=== PATIENT | female | born 1985 | race Caucasian/White ===

== ENCOUNTER 2018-07-03 19:39 | Emergency (ER) | payer OTHER ==
[~2018-07-03] VITALS: Ht 165.1 cm; Wt 72.6 kg
[~2018-07-03 19:39] MED LIST: AC500T PO; FERR-57 PO; FRS325T PO; NIFE20CA PO; PREN1TAB39 PO
--- NOTE | 2018-07-03 19:58 | ED General ---
General Chief Complaint: Upper Extremity Stated Complaint: LEFT WRIST INJURY History of Present Illness Date Seen by Provider: July 03, 2018 Time Seen by Provider: 19:43 32F here for L wrist pain 24 hours after injury playing softball. Caught line drive into a baseball glove, was feeling ok at the time but since then has developed more pain in the distal left forearm. No W/N/T. No other injuries. Sore, constant, mild, worse w movement, nonradiating. Allergies and Home Medications Allergies Coded Allergies: Amoxicillin (Verified Allergy, Unknown, 03/29/06) Home Medications Acetaminophen 500 Mg Tablet, 1,000 MG PO, (Reported) Ferrous Sulfate 325 Mg Tablet, 325 MG PO DAILY, (Reported) Nifedipine 20 Mg Capsule, 40 MG PO BID, (Reported) Vits W-Ca,Fe,Fa(<1MG) 1 Each Tablet, 1 EACH PO DAILY, (Reported) Patient Home Medication List Home Medication List Reviewed: Yes Review of Systems Review of Systems Constitutional: no symptoms reported EENTM: no symptoms reported Respiratory: no symptoms reported Cardiovascular: no symptoms reported Gastrointestinal: no symptoms reported Genitourinary: no symptoms reported Musculoskeletal: see HPI Skin: no symptoms reported Psychiatric/Neurological: No Symptoms Reported Hematologic/Lymphatic: No Symptoms Reported Past Elchqnf-Terhrm-Cewpnd Hx Past Med/Social Hx: Reviewed Nursing Past Med/Soc Hx Patient Social History Recent Foreign Travel: No Contact w/Someone Who Travel: No Immunizations Up To Date Date of Influenza Vaccine: Mar 25, 2011 Past Medical History Reproductive Disorders: No Physical Exam Vital Signs Vital Signs - First Documented 07/03/18 19:47 Temp 98.3 Pulse 80 Resp 16 B/P (MAP) 111/77 (88) Pulse Ox 100 O2 Delivery Room Air Capillary Refill : Height, Weight, BMI Height: '" Weight: lbs. oz. kg; BMI Method: General Appearance: No Apparent Distress HEENT: Moist Mucous Membranes Neck: Supple Respiratory: Lungs Clear Cardiovascular: Regular Rate, Rhythm, Normal Peripheral Pulses Gastrointestinal: Non Tender, Soft Extremity: Other (normal inspection of forearm and hand on L, mild tenderness over distal dorsal radius, no tenderness in the hand) Neurologic/Psychiatric: No Motor/Sensory Deficits (radial, median, ulnar nerve function intact in affected hand) Skin: Warm/Dry Progress/Results/Core Measures Suspected Sepsis SIRS Temperature: Pulse: Respiratory Rate: Blood Pressure / Mean: Results/Orders My Orders Orders - IMANI SHEEHAN DO Wrist 2 View Left (07/03/18 19:52) Vital Signs/I&O 07/03/18 19:47 Temp 98.3 Pulse 80 Resp 16 B/P (MAP) 111/77 (88) Pulse Ox 100 O2 Delivery Room Air Capillary Refill : Progress Note : Progress Note 32F L wrist injury 24 hours ago, NVI, mild ttp over distal radius. Obtained xr. No obvious fx on my read, pt will f/u for formal read. Volar splint during the day with ROM as tolerated, f/u pcp. HAMMAD, NSAID's. Return if worse. Departure Impression Primary Impression: Contusion of wrist Qualified Codes: S60.212A - Contusion of left wrist, initial encounter Disposition: 01 HOME, SELF-CARE Condition: Stable Departure-Patient Inst. Referrals: NO,LOCAL PHYSICIAN (PCP/Family) Primary Care Physician Patient Instructions: Common Wrist Injuries (DC) IMANI SHEEHAN DO July 03, 2018 19:58
[2018-07-03 20:03] VITALS: BP 111/77
--- NOTE | 2018-07-03 20:15 | Diagnostic Imaging Report ---
INDICATION: Left wrist pain COMPARISON: None FINDINGS: Two views of the left wrist demonstrate no fracture or dislocation. Articular surfaces are normal. No foreign body seen. IMPRESSION: Negative left wrist Dictated by: Dictated on workstation # [id number]
== END 2018-07-03 20:12 | disposition home or self-care (01) ==
LOC: EDUNIT# 19:39 → ER FS 19:42
DX: S60.212A Contusion of left wrist, initial encounter (principal); Z88.0 Allergy status to penicillin; X58.XXXA Exposure to other specified factors, initial encounter; Y93.64 Activity, baseball
CPT/HCPCS: 73100

== ENCOUNTER 2018-11-21 17:22 | Emergency (ER) | payer SELFPAY ==
[~2018-11-21] VITALS: Ht 162.6 cm; Wt 74.0 kg
--- NOTE | 2018-11-21 18:35 | ED Headache ---
General Chief Complaint: Head/Cervical Problems Stated Complaint: HEADACHE Nursing Triage Note: Patient reports a migraine headache for 1 week, states she has seen her PCP twice in the last week and has had IM injections both visits without relief. She states she has a 5-6 year history of migraines, saw a neurologist 5-6 years ago, but not since. She states this migraine is the worst she has ever had, states her vision is blurry and her aura of seeing flashing lights has not gone away. Nursing Sepsis Screen: No Definite Risk Source: patient History of Present Illness Date Seen by Provider: Nov 21, 2018 Time Seen by Provider: 18:11 Initial Comments 33-year-old female presenting with complaints of migraine headache. She states that this migraine has been present for almost a week now. She has seen the clinic twice with IM shots which usually have helped in the past but had not made the headache go away this week. She denies any fever or chills. She has nausea but no vomiting. She was told when she got the last set of shots through the clinic that if she was having any new symptoms or not getting better to come to the emergency department. Today she felt like her right side of her face was twitching as well as having blurred vision and difficulty remembering things. She has pain on the right side of her neck going up the back of her head to the front. She states that part is a little worse than normal. She denies any falls or recent injuries. Allergies and Home Medications Allergies Coded Allergies: Amoxicillin (Verified Allergy, Unknown, 03/29/06) Home Medications Acetaminophen 500 Mg Tablet, 1,000 MG PO, (Reported) Cyclobenzaprine HCl 10 Mg Tablet, 10 MG PO Q8H PRN for SPASMS Prescribed by: BYRON VILLALOBOS on 11/21/182105 Ferrous Sulfate 325 Mg Tablet, 325 MG PO DAILY, (Reported) Nifedipine 20 Mg Capsule, 40 MG PO BID, (Reported) Vits W-Ca,Fe,Fa(<1MG) 1 Each Tablet, 1 EACH PO DAILY, (Reported) Patient Home Medication List Home Medication List Reviewed: Yes Review of Systems Review of Systems Constitutional: No chills, No dizziness, No fever Eyes: Blurred Vision, Photophobia Ears, Nose, Mouth, Throat: denies ear pain, denies ear discharge, denies nose discharge, denies epistaxis Respiratory: No cough, No short of breath Cardiovascular: No chest pain Gastrointestinal: nausea; No vomiting Genitourinary: no symptoms reported Musculoskeletal: neck pain (right sided) Skin: No rash Psychiatric/Neurological: Headache Past Yfxwifk-Hxidbu-Gytjot Hx Past Med/Social Hx: Reviewed Nursing Past Med/Soc Hx Patient Social History Alcohol Use: Denies Use Recreational Drug Use: No Smoking Status: Current Everyday Smoker Type Used: Cigarettes 2nd Hand Smoke Exposure: No Recent Foreign Travel: No Contact w/Someone Who Travel: No Recent Infectious Disease Expo: No Recent Hopitalizations: No Physical Abuse: No Sexual Abuse: No Mistreated: No Fear: No Immunizations Up To Date Date of Influenza Vaccine: Mar 25, 2011 Seasonal Allergies Seasonal Allergies: No Past Medical History Surgeries: Yes (D&C, Appy, Hernia repair) Appendectomy, Tubal Ligation Respiratory: No Cardiac: No Neurological: Yes Headaches /Migraines Reproductive Disorders: No Genitourinary: No Gastrointestinal: No Musculoskeletal: No Endocrine: No HEENT: No Cancer: No Psychosocial: No Integumentary: No Blood Disorders: Yes Physical Exam Vital Signs Vital Signs - First Documented 11/21/18 17:33 Temp 36.1 Pulse 105 Resp 18 B/P (MAP) 120/73 (89) Pulse Ox 99 O2 Delivery Room Air Capillary Refill : Less Than 3 Seconds Height, Weight, BMI Height: 5'5.00" Weight: 160lbs. oz. 72.351294ll; 27.00 BMI Method:Stated General Appearance: WD/WN, mild distress HEENT: PERRL/EOMI, normal ENT inspection, TMs normal, pharynx normal Neck: full range of motion, supple, tender lateral (especially right side.); No tender midline Cardiovascular: normal peripheral pulses, regular rate, rhythm Respiratory: chest non-tender, lungs clear, normal breath sounds Gastrointestinal: normal bowel sounds, non tender, soft Extremities: normal range of motion, non-tender Psychiatric: alert, oriented x 3 Crainal Nerves: normal hearing, normal speech, PERRL Coordination/Gait: normal gait Motor/Sensory: no motor deficit, no sensory deficit Skin: normal color, warm/dry Progress/Results/Core Measures Results/Orders Lab Results Laboratory Tests Test 11/21/18 19:05 Range/Units White Blood Count 7.8 4.3-11.0 10^3/uL Red Blood Count 4.62 4.35-5.85 10^6/uL Hemoglobin 14.3 11.5-16.0 G/DL Hematocrit 43 35-52 % Mean Corpuscular Volume 93 80-99 FL Mean Corpuscular Hemoglobin 31 25-34 PG Mean Corpuscular Hemoglobin Concent 33 32-36 G/DL Red Cell Distribution Width 12.7 10.0-14.5 % Platelet Count 197 130-400 10^3/uL Mean Platelet Volume 10.8 H 7.4-10.4 FL Neutrophils (%) (Auto) 55 42-75 % Lymphocytes (%) (Auto) 32 12-44 % Monocytes (%) (Auto) 9 0-12 % Eosinophils (%) (Auto) 2 0-10 % Basophils (%) (Auto) 1 0-10 % Neutrophils # (Auto) 4.4 1.8-7.8 X 10^3 Lymphocytes # (Auto) 2.5 1.0-4.0 X 10^3 Monocytes # (Auto) 0.7 0.0-1.0 X 10^3 Eosinophils # (Auto) 0.2 0.0-0.3 10^3/uL Basophils # (Auto) 0.1 0.0-0.1 10^3/uL Sodium Level 139 135-145 MMOL/L Potassium Level 4.0 3.6-5.0 MMOL/L Chloride Level 105 98-107 MMOL/L Carbon Dioxide Level 23 21-32 MMOL/L Anion Gap 11 5-14 MMOL/L Blood Urea Nitrogen 7 7-18 MG/DL Creatinine 0.53 L 0.60-1.30 MG/DL Estimat Glomerular Filtration Rate > 60 BUN/Creatinine Ratio 13 Glucose Level 100 70-105 MG/DL Calcium Level 9.7 8.5-10.1 MG/DL Corrected Calcium 9.4 8.5-10.1 MG/DL Total Bilirubin 0.3 0.1-1.0 MG/DL Aspartate Amino Transf (AST/SGOT) 16 5-34 U/L Alanine Aminotransferase (ALT/SGPT) 12 0-55 U/L Alkaline Phosphatase 62 40-136 U/L Total Protein 7.1 6.4-8.2 GM/DL Albumin 4.4 3.2-4.5 GM/DL My Orders Orders - BYRON VILLALOBOS MD Iv/Invasive Line Insertion .IV start (11/21/18 18:42) Cbc With Automated Diff (11/21/18 18:42) Comprehensive Metabolic Panel (11/21/18 18:42) Ct Head Wo (11/21/18 18:42) Ns Iv 1000 Ml (Sodium Chloride 0.9%) (11/21/18 18:42) Ketorolac Injection (Toradol Injection) (11/21/18 18:42) Metoclopramide Injection (Reglan Injecti (11/21/18 18:42) Diphenhydramine Injection (Benadryl Inje (11/21/18 18:42) Orphenadrine Injection (Norflex Injectio (11/21/18 18:42) Dexamethasone Injection (Decadron Inject (11/21/18 20:14) Morphine Injection (Morphine Injection (11/21/18 20:14) Rx-Cyclobenzaprine Tablet (Rx-Flexeril T (11/21/18 21:03) Vital Signs/I&O 11/21/18 17:33 Temp 36.1 Pulse 105 Resp 18 B/P (MAP) 120/73 (89) Pulse Ox 99 O2 Delivery Room Air Blood Pressure Mean: 89 Progress Progress Note #1: Progress Note Check labs and CT head since she reports this headache feels worse or different than usual Migraine. Add in Norflex for neck pain and muscle spasm, IVF for hydration, Toradol for pain, Reglan for headache and nausea, Benadryl for nausea and to help her relax. Progress Note #2: Time: 20:06 Progress Note I reviewed her electronic medical records from [facility] and the CAT scans and MRIs that she had done within 2014 for the migraine workup. She has no acute abnormality on her CBC or chemistry. Her CT of the head tonight does not show any acute abnormalities either. On recheck of the patient's she states that her symptoms are improved but she was still having a headache. Her nausea is resolved. Unfortunately they do not stock IV Depakote here in the emergency department [facility] so I cannot give her an IV dose of this but will try IV dexamethasone and morphine. If this is helping her then plan on discharge to home and did addiction treatment counselor her about possibility of a rebound headache with the narcotics. Progress Note #3: Time: 20:58 Progress Note Pain down to 6/10 and feels like she could finally rest at home. Will send with a few cyclobenzaprine pills for home. Counseled on follow up and return precautions Diagnostic Imaging Diagonstic Imaging: CT Plain Films/CT/US/NM/MRI: head Comments NAME: [facility] REC#: [id number] PT STATUS: REG ER : 1985 PHYSICIAN: BYRON VILLALOBOS MD ADMIT DATE: 11/21/18/ER FS Draft Date of Exam:11/21/18 CT HEAD WO INDICATION: Persistent headache x 1 week. EXAMINATION: Noncontrast brain CT was performed. FINDINGS: There are no extra-axial fluid collections. No intracranial hemorrhage. No intracranial mass or mass effect. No midline shift. The ventricles are normal in size and position. There are no focal parenchymal abnormalities in the brain. Calvarial windows are unremarkable. Visualized portions of the mastoid air cells and paranasal sinuses are clear. IMPRESSION: Negative noncontrast brain CT. Dictated on workstation # [id number] Dict: 11/21/181915 Trans: 11/21/181918 [id number] Interpreted by: LISA DANIEL MD Electronically signed by: Reviewed: Reviewed by Me Departure Impression Primary Impression: Headache, migraine, intractable Qualified Codes: G43.119 - Migraine with aura, intractable, without status migrainosus Disposition: HOME, SELF-CARE Condition: Stable Departure-Patient Inst. Decision time for Depature: 21:05 Referrals: JASPREET ETIENNE MD (PCP/Family) Primary Care Physician Patient Instructions: Migraine Headache (DC) Add. Discharge Instructions: Follow-up with Dr. Etienne in the clinic for continued concerns. You may need to see a neurologist again if you are continuing to have worsening migraines. Stay well hydrated and get plenty of rest. Rest in a cool dark room Continue on your regular medicines. Take Muscle relaxer to help with your neck and headache symptoms as well. All discharge instructions reviewed with patient and/or family. Voiced understanding. Scripts Cyclobenzaprine HCl (Cyclobenzaprine HCl) 10 Mg Tablet 10 MG PO Q8H PRN for SPASMS for 5 Days, #15 TAB 0 Refills Prov: BYRON VILLALOBOS MD 11/21/18 Work/School Note: Work Release Form Date Seen in the Emergency Department: Nov 21, 2018 Return to Work: Nov 23, 2018 Restrictions: No Restrictions BYRON VILLALOBOS MD Nov 21, 2018 18:35
[2018-11-21] MEDS ORDERED: diphenhydrAMINE 50 MG/ML INJ (BENADRYL) IVP STA (18:42)
[2018-11-21] MEDS ORDERED: NS IV 1000 ML 1,000 ML IV STA (18:42)
[2018-11-21] MEDS ORDERED: METOCLOPRAMIDE INJ 10 MG/2 ML (REGLAN) IVP STA (18:42)
[2018-11-21] MEDS ORDERED: KETOROLAC 30 MG/ML VIAL IVP STA (18:42)
[2018-11-21] MEDS ORDERED: ORPHENADRINE 60 MG/2 ML (NORFLEX) AMP IVP STA (18:42)
[2018-11-21 19:15] LABS: HEMATOCRIT 43 % (35-52); HEMOGLOBIN 14.3 G/DL (11.5-16.0); MEAN CORPUSCULAR HEMOGLOBIN 31 PG (25-34); MEAN CORPUSCULAR HGB CONC 33 G/DL (32-36); MEAN CORPUSCULAR VOLUME 93 FL (80-99); RED CELL DISTRIBUTION WIDTH 12.7 % (10.0-14.5); WHITE BLOOD COUNT 7.8 10^3/uL (4.3-11.0)
[2018-11-21 19:16] LABS: BASOPHILS % (AUTO) 1 % (0-10); EOSINOPHILS % (AUTO) 2 % (0-10); LYMPHOCYTES % (AUTO) 32 % (12-44); MEAN PLATELET VOLUME 10.8 FL (7.4-10.4); MONOCYTES % (AUTO) 9 % (0-12); NEUTROPHILS # (AUTO) 4.4 X 10^3 (1.8-7.8); NEUTROPHILS % (AUTO) 55 % (42-75); PLATELET COUNT 197 10^3/uL (130-400)
[2018-11-21 19:17] LABS: BASOPHILS # (AUTO) 0.1 10^3/uL (0.0-0.1); EOSINOPHILS # (AUTO) 0.2 10^3/uL (0.0-0.3); LYMPHOCYTES # (AUTO) 2.5 X 10^3 (1.0-4.0); MONOCYTES # (AUTO) 0.7 X 10^3 (0.0-1.0)
--- NOTE | 2018-11-21 19:17 | NUR ---
PT RESTING IN BED WITH THE LIGHTS OFF. PT REPORTS HER PAIN IS STILL A 10/10. PROVIDER NOTIFIED.
--- NOTE | 2018-11-21 19:20 | Diagnostic Imaging Report ---
INDICATION: Persistent headache x 1 week. EXAMINATION: Noncontrast brain CT was performed. FINDINGS: There are no extra-axial fluid collections. No intracranial hemorrhage. No intracranial mass or mass effect. No midline shift. The ventricles are normal in size and position. There are no focal parenchymal abnormalities in the brain. Calvarial windows are unremarkable. Visualized portions of the mastoid air cells and paranasal sinuses are clear. IMPRESSION: Negative noncontrast brain CT. Dictated by: Dictated on workstation # [id number]
[2018-11-21 19:42] LABS: BUN/CREATININE RATIO 13; CARBON DIOXIDE 23 MMOL/L (21-32); CHLORIDE 105 MMOL/L (98-107); CREATININE SERUM 0.53 MG/DL (0.60-1.30); GFR ESTIMATED > 60; SODIUM 139 MMOL/L (135-145)
[2018-11-21 19:43] LABS: ALANINE AMINOTRANSFERASE 12 U/L (0-55); ALBUMIN 4.4 GM/DL (3.2-4.5); ALKALINE PHOSPHATASE 62 U/L (40-136); BILIRUBIN,TOTAL 0.3 MG/DL (0.1-1.0); CALCIUM 9.7 MG/DL (8.5-10.1); GLUCOSE 100 MG/DL (70-105); TOTAL PROTEIN 7.1 GM/DL (6.4-8.2)
[2018-11-21] MEDS ORDERED: morphine INJ 10 MG/ML 1ML (SYR OR VIAL) IVP STA (20:14)
[2018-11-21] MEDS ORDERED: DEXAMETHASONE 10 MG/ML (DECADRON) 1 ML VIAL IV STA (20:14)
[2018-11-21] MEDS ORDERED: RX-CYCLOBENZAPRINE 10 MG (FLEXERIL) TAB PPK#3 PO STA (21:03)
[2018-11-21] MEDS ORDERED: CYCL10TA9 PO (21:06)
[2018-11-21 21:14] VITALS: BP 131/78
== END 2018-11-21 21:13 | disposition home or self-care (01) ==
LOC: EDUNIT# 17:22 → ER FS 17:24
DX: G43.919 Migraine, unspecified, intractable, without status migrainosus (principal); F17.210 Nicotine dependence, cigarettes, uncomplicated; Z90.49 Acquired absence of other specified parts of digestive tract; Z98.51 Tubal ligation status; Z88.0 Allergy status to penicillin
CPT/HCPCS: 36415; 70450; 80053; 85025

== ENCOUNTER 2018-12-06 09:26 | Emergency (ER) | payer SELFPAY ==
[~2018-12-06] VITALS: Ht 162.5 cm; Wt 77.6 kg
[~2018-12-06 09:26] MED LIST changes: +CYCL10TA9 PO
--- NOTE | 2018-12-06 09:43 | ED Abdominal Pain ---
General Chief Complaint: Abdominal/GI Problems Stated Complaint: LRQ PAIN; HOT FLASHES; NAUSEA Source of Information: Patient Exam Limitations: No Limitations History of Present Illness Date Seen by Provider: Dec 06, 2018 Time Seen by Provider: 09:42 Initial Comments Patient complains of right lower quadrant and suprapubic pain since chest today. Pain is sharp and stabbing. It does not radiate. No vomiting or diarrhea. No fevers or chills. Similar pain in the past with an ovarian cyst. Allergies and Home Medications Allergies Coded Allergies: Amoxicillin (Verified Allergy, Unknown, 03/29/06) Home Medications Acetaminophen 500 Mg Tablet, 1,000 MG PO, (Reported) Cyclobenzaprine HCl 10 Mg Tablet, 10 MG PO Q8H PRN for SPASMS Prescribed by: BYRON VILLALOBOS on 11/21/182105 Ferrous Sulfate 325 Mg Tablet, 325 MG PO DAILY, (Reported) Nifedipine 20 Mg Capsule, 40 MG PO BID, (Reported) Vits W-Ca,Fe,Fa(<1MG) 1 Each Tablet, 1 EACH PO DAILY, (Reported) Patient Home Medication List Home Medication List Reviewed: Yes Review of Systems Review of Systems Constitutional: no symptoms reported EENTM: No Symptoms Reported Respiratory: No Symptoms Reported Cardiovascular: No Symptoms Reported Gastrointestinal: Abdominal Pain; Denies Diarrhea, Denies Nausea Musculoskeletal: no symptoms reported Skin: no symptoms reported All Other Systems Reviewed Negative Unless Noted: Yes Past Wwhmdsx-Ucqhfu-Jyygbq Hx Patient Social History Type Used: Cigarettes 2nd Hand Smoke Exposure: No Recent Foreign Travel: No Recent Hopitalizations: No Immunizations Up To Date Date of Influenza Vaccine: Mar 25, 2011 Seasonal Allergies Seasonal Allergies: No Past Medical History Surgeries: Yes (D&C, Appy, Hernia repair) Appendectomy, Tubal Ligation Respiratory: No Cardiac: No Neurological: Yes Headaches /Migraines Reproductive Disorders: No Genitourinary: No Gastrointestinal: No Musculoskeletal: No Endocrine: No HEENT: No Cancer: No Psychosocial: No Integumentary: No Blood Disorders: Yes Physical Exam Vital Signs Vital Signs - First Documented 12/06/18 09:32 Temp 36.8 Pulse 113 Resp 18 B/P (MAP) 123/79 (94) Pulse Ox 97 O2 Delivery Room Air Capillary Refill : Height/Weight/BMI Height: 5'5.00" Weight: 160lbs. oz. 72.423626yc; 27.00 BMI Method:Stated General Appearance: WD/WN, mild distress HEENT: PERRL/EOMI, pharynx normal Neck: supple Respiratory: lungs clear, normal breath sounds Cardiovascular: regular rate, rhythm, no edema Gastrointestinal: soft; No distended; guarding; No rebound; tenderness (suprapubic and right lower quadrant tenderness) Extremities: normal inspection Neurologic/Psychiatric: alert, normal mood/affect Skin: normal color, warm/dry Progress/Results/Core Measures Results/Orders Lab Results Laboratory Tests Test 12/06/18 09:48 12/06/18 09:55 Range/Units White Blood Count 9.8 4.3-11.0 10^3/uL Red Blood Count 4.10 L 4.35-5.85 10^6/uL Hemoglobin 12.8 11.5-16.0 G/DL Hematocrit 38 35-52 % Mean Corpuscular Volume 93 80-99 FL Mean Corpuscular Hemoglobin 31 25-34 PG Mean Corpuscular Hemoglobin Concent 34 32-36 G/DL Red Cell Distribution Width 12.7 10.0-14.5 % Platelet Count 208 130-400 10^3/uL Mean Platelet Volume 10.3 7.4-10.4 FL Neutrophils (%) (Auto) 65 42-75 % Lymphocytes (%) (Auto) 25 12-44 % Monocytes (%) (Auto) 8 0-12 % Eosinophils (%) (Auto) 1 0-10 % Basophils (%) (Auto) 1 0-10 % Neutrophils # (Auto) 6.4 1.8-7.8 X 10^3 Lymphocytes # (Auto) 2.4 1.0-4.0 X 10^3 Monocytes # (Auto) 0.8 0.0-1.0 X 10^3 Eosinophils # (Auto) 0.1 0.0-0.3 10^3/uL Basophils # (Auto) 0.1 0.0-0.1 10^3/uL Sodium Level 140 135-145 MMOL/L Potassium Level 3.9 3.6-5.0 MMOL/L Chloride Level 103 98-107 MMOL/L Carbon Dioxide Level 23 21-32 MMOL/L Anion Gap 14 5-14 MMOL/L Blood Urea Nitrogen 10 7-18 MG/DL Creatinine 0.59 L 0.60-1.30 MG/DL Estimat Glomerular Filtration Rate > 60 BUN/Creatinine Ratio 17 Glucose Level 108 H 70-105 MG/DL Calcium Level 8.9 8.5-10.1 MG/DL Corrected Calcium 8.7 8.5-10.1 MG/DL Total Bilirubin 0.2 0.1-1.0 MG/DL Aspartate Amino Transf (AST/SGOT) 23 5-34 U/L Alanine Aminotransferase (ALT/SGPT) 41 0-55 U/L Alkaline Phosphatase 81 40-136 U/L Total Protein 7.0 6.4-8.2 GM/DL Albumin 4.3 3.2-4.5 GM/DL Lipase 15 8-78 U/L Urine Color YELLOW Urine Clarity CLEAR Urine pH 6.5 5-9 Urine Specific [place] 1.015 L 1.016-1.022 Urine Protein NEGATIVE NEGATIVE Urine Glucose (UA) NEGATIVE NEGATIVE Urine Ketones NEGATIVE NEGATIVE Urine Nitrite NEGATIVE NEGATIVE Urine Bilirubin NEGATIVE NEGATIVE Urine Urobilinogen 0.2 NORMAL MG/DL Urine Leukocyte Esterase NEGATIVE NEGATIVE Urine RBC (Auto) NEGATIVE NEGATIVE Urine RBC NONE /HPF Urine WBC 2-5 /HPF Urine Squamous Epithelial Cells 10-25 H /HPF Urine Crystals NONE /LPF Urine Bacteria NEGATIVE /HPF Urine Casts NONE /LPF Urine Mucus NONE /LPF Urine Culture Indicated NO Urine Test NEGATIVE NEGATIVE My Orders Orders - JOSELITO RIVERA MD Cbc With Automated Diff (12/06/18 09:40) Comprehensive Metabolic Panel (12/06/18 09:40) Hcg,Qualitative Urine (12/06/18 09:40) Lipase (12/06/18 09:40) Ua Culture If Indicated (12/06/18 09:40) Ketorolac Injection (Toradol Injection) (12/06/18 09:45) Ct Abdomen/Pelvis Wo (12/06/18 09:52) Medications Given in ED Current Medications Medications Dose Ordered Sig/Sachin Route Start Time Stop Time Status Last Admin Dose Admin Ketorolac Tromethamine 30 mg ONCE ONCE IV 12/06/18 09:45 12/06/18 09:46 DC 12/06/18 10:03 30 MG Vital Signs/I&O 12/06/18 09:32 Temp 36.8 Pulse 113 Resp 18 B/P (MAP) 123/79 (94) Pulse Ox 97 O2 Delivery Room Air Progress Progress Note : Time: 11:02 Progress Note Patient feels better after medications. Stable for discharge. Test results discussed patient. Departure Impression Primary Impression: Abdominal pain Disposition: HOME, SELF-CARE Condition: Stable Departure-Patient Inst. Decision time for Depature: 11:02 Referrals: JASPREET ETEINNE MD (PCP/Family) Primary Care Physician Patient Instructions: Acute Abdomen (Belly Pain), Adult (DC) Add. Discharge Instructions: Clear liquid diet for next 24 hours. See your doctor tomorrow if not improving. All discharge instructions reviewed with patient and/or family. Voiced understanding. Scripts Diclofenac Sodium (Diclofenac Sodium) 50 Mg Tablet. 50 MG PO BID PRN, #10 TAB Prov: JOSELITO RIVERA MD 12/06/18 JOSELITO RIVERA MD Dec 06, 2018 09:43
[2018-12-06] MEDS ORDERED: KETOROLAC 30 MG/ML VIAL IV ONE (09:45)
[2018-12-06 09:57] LABS: BASOPHILS % (AUTO) 1 % (0-10); EOSINOPHILS % (AUTO) 1 % (0-10); HEMATOCRIT 38 % (35-52); HEMOGLOBIN 12.8 G/DL (11.5-16.0); LYMPHOCYTES # (AUTO) 2.4 X 10^3 (1.0-4.0); LYMPHOCYTES % (AUTO) 25 % (12-44); MEAN CORPUSCULAR HEMOGLOBIN 31 PG (25-34); MEAN CORPUSCULAR HGB CONC 34 G/DL (32-36); MEAN CORPUSCULAR VOLUME 93 FL (80-99); MEAN PLATELET VOLUME 10.3 FL (7.4-10.4); MONOCYTES # (AUTO) 0.8 X 10^3 (0.0-1.0); MONOCYTES % (AUTO) 8 % (0-12); NEUTROPHILS # (AUTO) 6.4 X 10^3 (1.8-7.8); NEUTROPHILS % (AUTO) 65 % (42-75); PLATELET COUNT 208 10^3/uL (130-400); RED CELL DISTRIBUTION WIDTH 12.7 % (10.0-14.5); WHITE BLOOD COUNT 9.8 10^3/uL (4.3-11.0)
[2018-12-06 09:58] LABS: BASOPHILS # (AUTO) 0.1 10^3/uL (0.0-0.1); EOSINOPHILS # (AUTO) 0.1 10^3/uL (0.0-0.3)
[2018-12-06 10:11] LABS: BILIRUBIN,URINE NEGATIVE (NEGATIVE); CLARITY,URINE CLEAR; COLOR,URINE YELLOW; GLUCOSE, URINE (UA) NEGATIVE (NEGATIVE); KETONES,URINE NEGATIVE (NEGATIVE); LEUKOCYTE ESTERASE ,URINE NEGATIVE (NEGATIVE); NITRITE,URINE NEGATIVE (NEGATIVE); PH,URINE 6.5 (5-9); PROTEIN,URINE NEGATIVE (NEGATIVE)
[2018-12-06 10:12] LABS: BACTERIA,URINE NEGATIVE /HPF
[2018-12-06 10:17] LABS: CHLORIDE 103 MMOL/L (98-107); POTASSIUM 3.9 MMOL/L (3.6-5.0); SODIUM 140 MMOL/L (135-145)
[2018-12-06 10:18] LABS: ALANINE AMINOTRANSFERASE 41 U/L (0-55); ALBUMIN 4.3 GM/DL (3.2-4.5); ALKALINE PHOSPHATASE 81 U/L (40-136); BILIRUBIN,TOTAL 0.2 MG/DL (0.1-1.0); BUN/CREATININE RATIO 17; CALCIUM 8.9 MG/DL (8.5-10.1); CARBON DIOXIDE 23 MMOL/L (21-32); CREATININE SERUM 0.59 MG/DL (0.60-1.30); GFR ESTIMATED > 60; GLUCOSE 108 MG/DL (70-105); LIPASE 15 U/L (8-78)
--- NOTE | 2018-12-06 10:41 | Diagnostic Imaging Report ---
CT ABDOMEN/PELVIS WO TECHNIQUE: Unenhanced CT imaging of the abdomen and pelvis was performed. 2-D reformats are created and submitted for interpretation. Automatic exposure controls were utilized to optimize patient dose. INDICATION: Right-sided abdominal pain. COMPARISON: None available. FINDINGS: Evaluation of the abdominal viscera is mildly limited without contrast. Lower chest: The lung bases are clear. No pericardial or pleural effusion. Peritoneum: No free intraperitoneal air or fluid. Liver and biliary system: Unenhanced liver is normal. The gallbladder is normal. No biliary duct dilation. Spleen and Pancreas: Spleen is normal. Unenhanced pancreas is grossly normal. Adrenals: Normal. tract: No renal or ureteral calculi. No obstructive uropathy. Uterus and ovaries are normal in appearance. GI tract: Stomach is decompressed, limiting assessment. No bowel obstruction. No pericolonic inflammatory changes. Appendectomy. Vasculature and Lymph nodes: Normal caliber aorta. No abdominal or pelvic lymphadenopathy. Musculoskeletal: No concerning osseous lesion. Nonaggressive lucent lesion with sclerotic margins in the L2 vertebral body along its posterior right lateral aspect. IMPRESSION: 1. No urinary tract calculi or obstructive uropathy. 2. No colitis, diverticulitis or bowel obstruction. 3. Appendectomy. Dictated by: Dictated on workstation # [id number]
[2018-12-06] MEDS ORDERED: DICL50TA6 PO (11:04)
[2018-12-06 11:18] VITALS: BP 123/79
== END 2018-12-06 11:18 | disposition home or self-care (01) ==
LOC: EDUNIT# 09:26 → ER FS 09:27
DX: R10.31 Right lower quadrant pain (principal); G43.909 Migraine, unspecified, not intractable, without status migrainosus; Z88.0 Allergy status to penicillin; Z90.49 Acquired absence of other specified parts of digestive tract; Z98.51 Tubal ligation status
CPT/HCPCS: 36415; 74176; 80053; 81000; 83690; 84703; 85025

== ENCOUNTER 2018-12-08 12:57 | Emergency (ER) | payer SELFPAY ==
[~2018-12-08] VITALS: Ht 164.5 cm; Wt 76.4 kg
[~2018-12-08 12:57] MED LIST changes: +DICL50TA6 PO
[2018-12-08] MEDS ORDERED: morphine INJ 10 MG/ML 1ML (SYR OR VIAL) IVP STA (13:09)
[2018-12-08] MEDS ORDERED: KETOROLAC 30 MG/ML VIAL IVP ONE (13:15)
[2018-12-08] MEDS ORDERED: NS IV 1000 ML 1,000 ML IV SCH (13:15)
[2018-12-08 13:24] LABS: BILIRUBIN,URINE NEGATIVE (NEGATIVE); CLARITY,URINE CLEAR; COLOR,URINE PALE YELLOW; GLUCOSE, URINE (UA) NEGATIVE (NEGATIVE); KETONES,URINE NEGATIVE (NEGATIVE); LEUKOCYTE ESTERASE ,URINE NEGATIVE (NEGATIVE); NITRITE,URINE NEGATIVE (NEGATIVE); PH,URINE 7.5 (5-9); PROTEIN,URINE NEGATIVE (NEGATIVE)
[2018-12-08 13:25] LABS: BACTERIA,URINE TRACE /HPF; RBC,URINE RARE /HPF; SQUAMOUS EPITHELIAL CELL,UR 0-2 /HPF; WBC,URINE RARE /HPF
[2018-12-08 13:27] LABS: HEMATOCRIT 41 % (35-52); HEMOGLOBIN 13.5 G/DL (11.5-16.0); MEAN CORPUSCULAR HEMOGLOBIN 31 PG (25-34); WHITE BLOOD COUNT 8.8 10^3/uL (4.3-11.0)
[2018-12-08 13:28] LABS: BASOPHILS # (AUTO) 0.1 10^3/uL (0.0-0.1); BASOPHILS % (AUTO) 1 % (0-10); EOSINOPHILS # (AUTO) 0.1 10^3/uL (0.0-0.3); EOSINOPHILS % (AUTO) 1 % (0-10); LYMPHOCYTES # (AUTO) 2.4 X 10^3 (1.0-4.0); LYMPHOCYTES % (AUTO) 27 % (12-44); MEAN CORPUSCULAR HGB CONC 33 G/DL (32-36); MEAN CORPUSCULAR VOLUME 94 FL (80-99); MEAN PLATELET VOLUME 10.3 FL (7.4-10.4); MONOCYTES # (AUTO) 0.7 X 10^3 (0.0-1.0); MONOCYTES % (AUTO) 7 % (0-12); NEUTROPHILS # (AUTO) 5.6 X 10^3 (1.8-7.8); NEUTROPHILS % (AUTO) 64 % (42-75); PLATELET COUNT 217 10^3/uL (130-400); RED CELL DISTRIBUTION WIDTH 12.5 % (10.0-14.5)
[2018-12-08] MEDS ORDERED: HOLD METFORMIN - RECEIVED CONTRAST 20 ML VIAL IV SCH (13:30)
[2018-12-08] MEDS ORDERED: NS 100 ML (IVPB) BAG IV ONE (13:30)
[2018-12-08] MEDS ORDERED: IOHEXOL 350 MG/ML 100 ML (OMNIPAQUE 350) VIAL IV ONE (13:30)
[2018-12-08] MEDS ORDERED: CATHETER FLUSH 10 ML SYR IV PRN (13:30)
[2018-12-08 13:44] LABS: CARBON DIOXIDE 26 MMOL/L (21-32); CHLORIDE 104 MMOL/L (98-107); POTASSIUM 4.2 MMOL/L (3.6-5.0); SODIUM 141 MMOL/L (135-145)
[2018-12-08 13:45] LABS: ALANINE AMINOTRANSFERASE 36 U/L (0-55); ALBUMIN 4.5 GM/DL (3.2-4.5); ALKALINE PHOSPHATASE 82 U/L (40-136); BILIRUBIN,TOTAL 0.4 MG/DL (0.1-1.0); BUN/CREATININE RATIO 14; CALCIUM 9.5 MG/DL (8.5-10.1); CREATININE SERUM 0.56 MG/DL (0.60-1.30); GFR ESTIMATED > 60; GLUCOSE 103 MG/DL (70-105); LIPASE 18 U/L (8-78); TOTAL PROTEIN 7.3 GM/DL (6.4-8.2)
--- NOTE | 2018-12-08 13:49 | ED Abdominal Pain ---
General Chief Complaint: Abdominal/GI Problems Stated Complaint: DISTENDED ABD; ABD PAIN Nursing Triage Note: PT WAS SEEN IN THE ED A FEW DAYS AGO WITH ABDOMINAL PAIN. SHE REPORTS BLOATING AND DISTENTION WAXING AND WANING WITH PRESSURE IN HER ABDOMEN. RIGHT LOWER QUAD PAIN. PT REPORTS SOME BLOOD-TINGE WHEN WIPING AFTER URINATION. REPORTS CHILLS AND NAUSEA. Sepsis Screen: No Definite Risk History of Present Illness Date Seen by Provider: Dec 08, 2018 Time Seen by Provider: 13:15 Initial Comments The patient is a pleasant 33-year-old female who presents for evaluation of abdominal bloating, distention, and pain over the last several days. She was seen here in the emergency department a few days ago and was diagnosed with ovarian cysts. She followed up with her PCP yesterday and was told to come to the emergency department if her symptoms worsened. At the visit yesterday she was prescribed ciprofloxacin and Flagyl for possible ovarian rupture to prevent infection/abscess. Today she feels like the pain worsened and her abdominal distention worsened so she presented to the emergency department. She denies fevers or chills, back or flank pain, chest pain or shortness of breath, nausea or vomiting, or vaginal pain. Timing/Duration: 3-4 Days Severity/Quality: Severe Location: RLQ, Suprapubic Radiation: No Radiation Activities at Onset: None Associated Symptoms: Denies Symptoms Allergies and Home Medications Allergies Coded Allergies: Amoxicillin (Verified Allergy, Unknown, 03/29/06) Home Medications Acetaminophen 500 Mg Tablet, 1,000 MG PO, (Reported) Cyclobenzaprine HCl 10 Mg Tablet, 10 MG PO Q8H PRN for SPASMS Prescribed by: BYRON VILLALOBOS on 11/21/182105 Diclofenac Sodium 50 Mg Tablet.dr, 50 MG PO BID PRN Prescribed by: JOSELITO RIVERA on 12/06/18 1104 Ferrous Sulfate 325 Mg Tablet, 325 MG PO DAILY, (Reported) Nifedipine 20 Mg Capsule, 40 MG PO BID, (Reported) Vits W-Ca,Fe,Fa(<1MG) 1 Each Tablet, 1 EACH PO DAILY, (Reported) Patient Home Medication List Home Medication List Reviewed: Yes Review of Systems Review of Systems Constitutional: no symptoms reported EENTM: No Symptoms Reported Respiratory: No Symptoms Reported Cardiovascular: No Symptoms Reported Gastrointestinal: Abdominal Pain Genitourinary: No Symptoms Reported Musculoskeletal: no symptoms reported Skin: no symptoms reported Psychiatric/Neurological: No Symptoms Reported Endocrine: No Symptoms Reported Hematologic/Lymphatic: No Symptoms Reported All Other Systems Reviewed Negative Unless Noted: Yes Past Sdcghwh-Nberjk-Yasohe Hx Past Med/Social Hx: Reviewed Nursing Past Med/Soc Hx Patient Social History Type Used: Cigarettes 2nd Hand Smoke Exposure: No Recent Foreign Travel: No Contact w/Someone Who Travel: No Recent Infectious Disease Expo: No Recent Hopitalizations: No Physical Abuse: No Sexual Abuse: No Mistreated: No Fear: No Immunizations Up To Date Date of Influenza Vaccine: Mar 25, 2011 Seasonal Allergies Seasonal Allergies: No Past Medical History Surgeries: Yes (D&C, Appy, Hernia repair) Appendectomy, Tubal Ligation Respiratory: No Cardiac: No Neurological: Yes Headaches /Migraines Reproductive Disorders: No HOME VISITOR History: Tubal Ligation Genitourinary: No Gastrointestinal: No Musculoskeletal: No Endocrine: No HEENT: No Cancer: No Psychosocial: No Integumentary: No Blood Disorders: No Physical Exam Vital Signs Vital Signs - First Documented 12/08/18 13:27 Temp 36.7 Pulse 102 Resp 18 B/P (MAP) 125/84 (98) Capillary Refill : Less Than 3 Seconds Height/Weight/BMI Height: 5'5.00" Weight: 160lbs. oz. 72.768301va; 28.00 BMI Method:Stated General Appearance: WD/WN, no apparent distress HEENT: PERRL/EOMI, normal ENT inspection Neck: non-tender, full range of motion Respiratory: chest non-tender, lungs clear, normal breath sounds, no respiratory distress, no accessory muscle use Cardiovascular: normal peripheral pulses, no edema, tachycardia (mild) Gastrointestinal: normal bowel sounds, distended (to moderate), tenderness (mild generalized) Extremities: normal range of motion, no pedal edema, no calf tenderness Back: normal inspection, no CVA tenderness Neurologic/Psychiatric: metal riveter II-XII nml as tested, no motor/sensory deficits, alert, normal mood/affect, oriented x 3 Skin: normal color, warm/dry Progress/Results/Core Measures Results/Orders Lab Results Laboratory Tests Test 12/08/18 13:05 12/08/18 13:15 Range/Units Urine Color PALE YELLOW Urine Clarity CLEAR Urine pH 7.5 5-9 Urine Specific [place] <=1.005 1.016-1.022 Urine Protein NEGATIVE NEGATIVE Urine Glucose (UA) NEGATIVE NEGATIVE Urine Ketones NEGATIVE NEGATIVE Urine Nitrite NEGATIVE NEGATIVE Urine Bilirubin NEGATIVE NEGATIVE Urine Urobilinogen 0.2 NORMAL MG/DL Urine Leukocyte Esterase NEGATIVE NEGATIVE Urine RBC (Auto) NEGATIVE NEGATIVE Urine RBC RARE /HPF Urine WBC RARE /HPF Urine Squamous Epithelial Cells 0-2 /HPF Urine Crystals NONE /LPF Urine Bacteria TRACE /HPF Urine Casts NONE /LPF Urine Mucus NONE /LPF Urine Culture Indicated NO White Blood Count 8.8 4.3-11.0 10^3/uL Red Blood Count 4.34 L 4.35-5.85 10^6/uL Hemoglobin 13.5 11.5-16.0 G/DL Hematocrit 41 35-52 % Mean Corpuscular Volume 94 80-99 FL Mean Corpuscular Hemoglobin 31 25-34 PG Mean Corpuscular Hemoglobin Concent 33 32-36 G/DL Red Cell Distribution Width 12.5 10.0-14.5 % Platelet Count 217 130-400 10^3/uL Mean Platelet Volume 10.3 7.4-10.4 FL Neutrophils (%) (Auto) 64 42-75 % Lymphocytes (%) (Auto) 27 12-44 % Monocytes (%) (Auto) 7 0-12 % Eosinophils (%) (Auto) 1 0-10 % Basophils (%) (Auto) 1 0-10 % Neutrophils # (Auto) 5.6 1.8-7.8 X 10^3 Lymphocytes # (Auto) 2.4 1.0-4.0 X 10^3 Monocytes # (Auto) 0.7 0.0-1.0 X 10^3 Eosinophils # (Auto) 0.1 0.0-0.3 10^3/uL Basophils # (Auto) 0.1 0.0-0.1 10^3/uL Sodium Level 141 135-145 MMOL/L Potassium Level 4.2 3.6-5.0 MMOL/L Chloride Level 104 98-107 MMOL/L Carbon Dioxide Level 26 21-32 MMOL/L Anion Gap 11 5-14 MMOL/L Blood Urea Nitrogen 8 7-18 MG/DL Creatinine 0.56 L 0.60-1.30 MG/DL Estimat Glomerular Filtration Rate > 60 BUN/Creatinine Ratio 14 Glucose Level 103 70-105 MG/DL Calcium Level 9.5 8.5-10.1 MG/DL Corrected Calcium 9.1 8.5-10.1 MG/DL Total Bilirubin 0.4 0.1-1.0 MG/DL Aspartate Amino Transf (AST/SGOT) 26 5-34 U/L Alanine Aminotransferase (ALT/SGPT) 36 0-55 U/L Alkaline Phosphatase 82 40-136 U/L Total Protein 7.3 6.4-8.2 GM/DL Albumin 4.5 3.2-4.5 GM/DL Lipase 18 8-78 U/L My Orders Orders - SUZETTE MILLER DO Comprehensive Metabolic Panel (12/08/18 13:09) Lipase (12/08/18 13:09) Ua Culture If Indicated (12/08/18 13:09) Hcg,Qualitative Serum (12/08/18 13:09) Ed Iv/Invasive Line Start (12/08/18 13:09) Cbc With Automated Diff (12/08/18 13:09) Ct Abdomen/Pelvis W (12/08/18 13:09) Ns Iv 1000 Ml (Sodium Chloride 0.9%) (12/08/18 13:15) Morphine Injection (Morphine Injection (12/08/18 13:09) Ketorolac Injection (Toradol Injection) (12/08/18 13:15) Iohexol Injection (Omnipaque 350 Mg/Ml 1 (12/08/18 13:30) Received Contrast (Hold Metformin- Contr (12/08/18 13:30) Sodium Chloride Flush (Catheter Flush Sy (12/08/18 13:30) Ns (Ivpb) (Sodium Chloride 0.9% Ivpb Bag (12/08/18 13:30) Medications Given in ED Current Medications Medications Dose Ordered Sig/Sachin Route Start Time Stop Time Status Last Admin Dose Admin Iohexol 100 ml ONCE ONCE IV 12/08/18 13:30 12/08/18 13:33 DC 12/08/18 13:58 100 ML Ketorolac Tromethamine 30 mg ONCE ONCE IVP 12/08/18 13:15 12/08/18 13:16 DC 12/08/18 13:25 30 MG Sodium Chloride 10 ml NEEDED PRN IV 12/08/18 13:30 12/08/18 13:58 10 ML Sodium Chloride 100 ml ONCE ONCE IV 12/08/18 13:30 12/08/18 13:33 DC 12/08/18 13:58 80 ML Vital Signs/I&O 12/08/18 13:27 Temp 36.7 Pulse 102 Resp 18 B/P (MAP) 125/84 (98) Blood Pressure Mean: 98 Diagnostic Imaging Comments [email or web address] [place], [place] NAME: DEDRICK PALUMBO [facility] REC#: [id number] PT STATUS: REG ER : 1985 PHYSICIAN: SUZETTE MILLER DO ADMIT DATE: 12/08/18/ER FS Draft Date of Exam:12/08/18 CT ABDOMEN/PELVIS W PROCEDURE: CT abdomen and pelvis with contrast. TECHNIQUE: Multiple contiguous axial images were obtained through the abdomen and pelvis after administration of intravenous contrast. Auto Exposure Controls were utilized during the CT exam to meet ALARA standards for radiation dose reduction. INDICATION: Abdominal distention for two days. COMPARISON: Comparison is made with prior CT from 12/06/2018. FINDINGS: The lung bases are clear. Liver and gallbladder are unremarkable. No biliary ductal dilatation is seen. Pancreas and spleen are unremarkable. No adrenal mass is detected. Kidneys are unremarkable. No hydronephrosis is identified. The aorta is nonaneurysmal. No central retroperitoneal or mesenteric lymphadenopathy is seen. There is a large amount of stool throughout the colon suggestive of constipation. There is some nondistended fluid-filled small bowel, nonspecific. No transition is seen. Findings could be owing to nonspecific enteritis. There is no free fluid or loculated fluid collection. No free air is seen. The bladder is unremarkable. There are two small cysts involving the right ovary. No pelvic lymphadenopathy is seen. IMPRESSION: 1. Moderate stool suggestive of constipation. 2. Nonspecific fluid-filled small bowel without evidence of transition, possibly owing to nonspecific enteritis. Study is otherwise unremarkable. Dictated on workstation # [id number] Dict: 12/08/18 1409 Trans: 12/08/18 1424 [id number] Interpreted by: GUERO WALTER MD Electronically signed by: Departure Impression Primary Impression: Constipation Additional Impression: Enteritis Disposition: 01 HOME, SELF-CARE Condition: Stable Departure-Patient Inst. Referrals: JASPREET ETIENNE MD (PCP/Family) Primary Care Physician Patient Instructions: Constipation, Adult (DC), Colitis (DC) Add. Discharge Instructions: Take the prescribed medications as directed. Return to the ER immediately for new or worsening symptoms. Follow-up with your doctor in the next 1-2 days. Scripts Ondansetron (Ondansetron Odt) 4 Mg Tab.rapdis 4 MG PO Q6H PRN for NAUSEA/VOMITING-1ST LINE for 5 Days, #20 TAB Prov: SUZETTE MILLER DO 12/08/18 Hydrocodone/Acetaminophen ([place] 5-325 Tablet) 1 Each Tablet 1 TAB PO Q4-6HR for Pain MDD 10 TABS for 7 Days, #15 TAB Prov: SUZETTE MILLER DO 12/08/18 Magnesium Citrate (Magnesium Citrate) 296 Ml Solution 296 ML PO DAILY for 3 Days, #3 EA Prov: SUZETTE MILLER DO 12/08/18 Docusate Sodium (Colace) 100 Mg Capsule 100 MG PO BID PRN for CONSTIPATION-1ST LINE, #20 CAP Prov: SUZETTE MILLER DO 12/08/18 SUZETTE MILLER DO Dec 08, 2018 13:49
--- NOTE | 2018-12-08 14:25 | Diagnostic Imaging Report ---
PROCEDURE: CT abdomen and pelvis with contrast. TECHNIQUE: Multiple contiguous axial images were obtained through the abdomen and pelvis after administration of intravenous contrast. Auto Exposure Controls were utilized during the CT exam to meet ALARA standards for radiation dose reduction. INDICATION: Abdominal distention for two days. COMPARISON: Comparison is made with prior CT from 12/06/2018. FINDINGS: The lung bases are clear. Liver and gallbladder are unremarkable. No biliary ductal dilatation is seen. Pancreas and spleen are unremarkable. No adrenal mass is detected. Kidneys are unremarkable. No hydronephrosis is identified. The aorta is nonaneurysmal. No central retroperitoneal or mesenteric lymphadenopathy is seen. There is a large amount of stool throughout the colon suggestive of constipation. There is some nondistended fluid-filled small bowel, nonspecific. No transition is seen. Findings could be owing to nonspecific enteritis. There is no free fluid or loculated fluid collection. No free air is seen. The bladder is unremarkable. There are two small cysts involving the right ovary. No pelvic lymphadenopathy is seen. IMPRESSION: 1. Moderate stool suggestive of constipation. 2. Nonspecific fluid-filled small bowel without evidence of transition, possibly owing to nonspecific enteritis. Study is otherwise unremarkable. Dictated by: Dictated on workstation # [id number]
[2018-12-08] MEDS ORDERED: DOCU-143 PO (14:48)
[2018-12-08] MEDS ORDERED: MAGN296S50 PO (14:48)
[2018-12-08] MEDS ORDERED: HYDR-4226 PO (14:48)
[2018-12-08] MEDS ORDERED: ONDA4TAB11 PO (14:48)
[2018-12-08 14:56] VITALS: BP 124/72
== END 2018-12-08 15:17 | disposition home or self-care (01) ==
LOC: EDUNIT# 12:57 → ER FS 12:58
DX: K59.00 Constipation, unspecified (principal); K52.9 Noninfective gastroenteritis and colitis, unspecified; G43.909 Migraine, unspecified, not intractable, without status migrainosus; Z88.0 Allergy status to penicillin; Z90.49 Acquired absence of other specified parts of digestive tract; Z98.51 Tubal ligation status
CPT/HCPCS: 36415; 74177; 80053; 81000; 83690; 84703; 85025; 96374; 96375

== ENCOUNTER → 2019-01-06 | Outpatient (CLI) | payer SELFPAY ==
[~2019-01-06] MED LIST changes: +DOCU-143 PO; +HYDR-4226 PO; +MAGN296S50 PO; +ONDA4TAB11 PO
== END ==
LOC: CARD 11:38
PROVIDERS: ATTEND Family Medicine
DX: R60.0 Localized edema (principal)
CPT/HCPCS: 93306